=== PATIENT | male | born 1995 | race African-American/Black ===

== ENCOUNTER 2018-06-22 11:33 | Outpatient (CLI) | payer OTHER ==
--- NOTE | 2018-06-22 14:27 | MRI ---
MRI RIGHT FOOT WITHOUT IV CONTRAST: INDICATIONS: Concern for Lisfranc ligament injury. COMPARISON: Right foot radiograph dated 06/06/2018. FINDINGS: The plantar band of the Lisfranc ligament is intact. There is scattered marrow edema involving the n avicular, the cuneiforms, and the cuboid. There is mild edema involving the base of the third and fo urth metatarsals. There is a nondisplaced fracture involving the plantar and lateral base of the fou rth digit metatarsal, on images 13 and 12 of series 8. No additional fracture is grossly evident. T he intrinsic foot musculature appears within normal limits. The flexor and extensor tendons are norm al appearing. IMPRESSION: 1. Lisfranc ligament is intact. Lisfranc alignment appears within normal limits. 2. Nondisplaced fracture involving the plantar lateral base of the fourth metatarsal. 3. Scattered areas of marrow edema involving the midfoot, as well as the third and fourth metatarsal bases, may be related to contusion. POS: [facility]
== END 2018-06-22 11:34 | disposition home or self-care (01) ==
LOC: MRI 11:33
PROVIDERS: ATTEND Orthopaedic Surgery
DX: M79.671 Pain in right foot (principal); S92.344A Nondisplaced fracture of fourth metatarsal bone, right foot, initial encounter for closed fracture; R60.9 Edema, unspecified